=== PATIENT | male | born 1965 | race Caucasian/White ===

== ENCOUNTER 2021-02-20 02:40 | Day surgery (SDC) | payer BC, SELFPAY ==
[2021-02-03 10:08] VITALS: BMI 27.4
--- NOTE | 2021-02-17 16:29 | PM.HPGS ---
History of Present Illness History of Present Illness Consent: Risks, benefits, and alternatives have been discussed and questions answered. Patient agrees to proceed with procedure. Chief complaint: neoplasm screening, fami hx colon CA Narrative: Real Gomez is a 55 year old male who is referred for colon cancer screening Review of Systems Review of Systems: All systems reviewed & are unremarkable except as noted in HPI and below PMFSH Past Medical History Medical History DM w/o complication type II Essential (primary) hypertension Hyperglycemia Orthostasis Osteoarthritis, hand Family History Family History Mother Carcinoma of colon Other Hypertension Social History Social History Smoking status: Never smoker Alcohol intake: current Drinks per week: 1 Substance use type: does not use Living arrangements: with family Spiritual care concerns: No Meds Home Medications and Allergies Home Medications Medication Instructions Recorded Confirmed Type lisinopril 10 1 tablet PO DAILY #90 tablet 10/25/20 02/20/21 Rx mg-hydrochlorothiazide 12.5 mg tablet metformin 500 mg tablet 500 mg PO DAILY #90 tablet 10/26/20 02/20/21 Rx naproxen 500 mg tablet 500 mg PO BID PRN 10/31/20 02/20/21 History Allergies Allergy/AdvReac Type Severity Reaction Status Date / Time No Known Allergies Allergy Verified 02/20/21 06:41 Exam Resp: Auscultation: clear to auscultation bilaterally Cardio: Rate: regular rate Rhythm: regular rhythm GI: GI Palp: Yes Soft to palpation and No Tenderness to palpation present (GI) Assessment and Plan Assessment and plan (1) Colon cancer screening: Code(s): Z12.11 - Encounter for screening for malignant neoplasm of colon Status: Acute Assessment and Plan: Colonoscopy with possible biopsy or polypectomy or cautery or injection of substances.
[2021-02-20 06:42] LABS: Glucose Point of Care 129 mg/dl (65-105)
[2021-02-20 06:43] VITALS: BP 135/89; PULSE 88; RESP 18; TEMP 36.7; O2SAT 99
[2021-02-20] MEDS: LACTATED RINGERS 1,000 ML 150 ML IV CONT (06:45)
--- NOTE | 2021-02-20 07:43 | WPDANESEPPF ---
Anes - Initial Pre Proc Eval Procedure: Operation Date: 02/20/21 08:00 Proposed Procedures p Screening Colonoscopy - Juancho Paniagua MD Date/Time: 02/20/21 07:43 Surgeon: Juancho Paniagua MD Pre Op Diagnosis: neoplasm screening, fami hx colon CA Patient Data Age: 55 Gender: M Height: 1.73 m Weight: 83.5 kg Last Vital Signs Temp 98.1 F 02/20/21 06:43 Pulse 88 02/20/21 06:43 Resp 18 02/20/21 06:43 BP 135/89 02/20/21 06:43 Pulse Ox 99 02/20/21 06:43 Allergies Allergy/AdvReac Type Severity Reaction Status Date / Time No Known Allergies Allergy Verified 02/20/21 06:41 Home Medications Medication Instructions Recorded Confirmed Type lisinopril 10 1 tablet PO DAILY #90 tablet 10/25/20 02/20/21 Rx mg-hydrochlorothiazide 12.5 mg tablet metformin 500 mg tablet 500 mg PO DAILY #90 tablet 10/26/20 02/20/21 Rx naproxen 500 mg tablet 500 mg PO BID PRN 10/31/20 02/20/21 History Laboratory Tests 02/20/21 06:38 POC Capillary Glucose 129 mg/dl H mg/dl (65-105) Patient hx anesthesia problems: none Family hx anesthesia problems: none Results Review: All pre-operative results and documents have been reviewed as part of the pre-operative evaluation. [facility] Past Medical History Medical History DM w/o complication type II Essential (primary) hypertension Hyperglycemia Orthostasis Osteoarthritis, hand Family History Family History Mother Carcinoma of colon Other Hypertension Social History Social History Smoking status: Never smoker Alcohol intake: current Drinks per week: 1 Substance use type: does not use Living arrangements: with family Spiritual care concerns: No Anes - Eval Final PreProcedure Day of Procedure 02/20/21 07:43 Patient weight: overweight Heart: regular rate and rhythm Lungs: clear to auscultation Airway: Mallampati scale class II Neurological: alert and oriented Last oral intake: >/= 8 hours ASA classification: III Emergent: no Anesthetic plan: proceed Anesthesia type and monitoring: general GIVS and standard monitoring Results Review: All pre-operative results and documents have been reviewed as part of the pre-operative evaluation. Informed Consent: The patient's anesthetic plan and its attendant risks and benefits were discussed with the patient/family/POA. Questions were solicited and answers provided to the satisfaction of the patient/family/POA.
[2021-02-20 08:08] VITALS: BP 109/71; PULSE 91; RESP 18; O2SAT 94
[2021-02-20 08:18] VITALS: BP 119/82; PULSE 81; RESP 16; O2SAT 94
[2021-02-20 08:28] VITALS: BP 138/98; PULSE 83; RESP 20; O2SAT 97
== END 2021-02-20 08:49 | disposition home or self-care (01) ==
PROVIDERS: PCP Internal Medicine; Visit Provider Internal Medicine Gastroenterology
PROC: 0DJD8ZZ Inspection of Lower Intestinal Tract, Via Natural or Artificial Opening Endoscopic (ICD-10-PCS; CPT 45378; principal; 2021-02-20 08:00)
DX: Z12.11 Encounter for screening for malignant neoplasm of colon (principal); K57.30 Diverticulosis of large intestine without perforation or abscess without bleeding; D12.5 Benign neoplasm of sigmoid colon; Z80.0 Family history of malignant neoplasm of digestive organs; E11.9 Type 2 diabetes mellitus without complications; I10 Essential (primary) hypertension; Z79.84 Long term (current) use of oral hypoglycemic drugs
CPT/HCPCS: 45385; 82948; 88305; J2704; J7120

== ENCOUNTER 2022-12-12 13:15 | Outpatient (RCR) | payer BC, SELFPAY ==
--- NOTE | 2022-11-13 08:59 | OTOPEVAL1 ---
Assessment and note entered by Bennie Juan, JO/Aliza, CHT Evaluation Information Assessment Status Evaluation Diagnosis Bilat hand OA, right RF trigger finger Subjective Information Patient reporting pain in the right hand, 3/10 at rest and with light ROM. With heavier use the pain can get higher, but he reports he has tried to cut back on over doing it. 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 He was having difficulties with making a fist and tying his shoes, but he did receive a cortisone injection earlier this month and since then he has been able to make a fist and tie shoes. Overall he is feeling like his hands are very tight and sore with a composite fist. Reported Pain Level Pain Score 3,1: Self Report Assessment OT Clinical Summary Patient referred to outpatient OT with bilateral hand pain and stiffness, which has been restricting his ability to complete ADL tasks. Skilled OT indicated to maximize functional flexibility and reduce pain to facilitate optimal functional hand use for ADLs. Plan of Care Interventions Therapeutic Exercise,Manual Therapy,Therapeutic Activities,Hot Pack/Cold Pack,Paraffin OT Services Indicated Yes Treatment Frequency and 1x/week for 4 weeks Duration These treatments will address the objective and functional deficits as defined above. The patient will be advanced safely and appropriately in order for the patient to progress towards his/her prior level of function. Additional exercises will be introduced and as well as a comprehensive home exercise program upon discharge, if needed, ?to ensure carryover of functional gains achieved in the clinic. This treatment plan has been reviewed and agreement upon by the patient.
--- NOTE | 2022-11-13 08:59 | OPREHPOC ---
Outpatient Therapy Plan of Care This is a Multidisciplinary Plan of Care that may contain components documented by all disciplines (PT, OT, and ST.) OT Problem 1 OT Problem #1 Knowledge Deficit OT Goal 1 Goal 1. Patient to be independent with instructed materials. Target Visit 4 OT Problem 2 OT Problem #2 Impaired Flexibility OT Goal 1 Goal 1. Increase functional flexibility of the right hand as demonstrated by having less than 2 cm gap between the finger tips at the DPC when making a hook fist. OT Problem 3 OT Problem #3 Pain OT Goal 1 Goal 1. Patient to report reduced pain in bilateral hands, stating 0/10 with ROM and light ADLs. Target Visit 4
--- NOTE | 2022-12-12 14:06 | OTOPDC ---
Assessment and note entered by Bennie Juan, OTTrish/Aliza, CHT Discharge Summary 12/12/22 Assessment Status Discharge Diagnosis Bilat hand OA, right RF trigger finger Subjective Information Patient reports overall his hands are feeling better. Continues to have regular pain in the right hand, no longer reporting pain in the left hand. Overall he reports his hands are functional, reporting no limitations at this time. Active ROM of bilateral hands remained relatively unchanged since the start of care. (R) rag collector strength improved 12 lbs. (L) rag collector strength improved 20 lbs. Assessment OT Clinical Summary Patient referred to outpatient OT with bilateral hand pain and stiffness. OT focused on improved functional flexibility and strength of bilateral hands. ROM remained relatively unchanged since the start of care. He continues to have intrinsic tightness and stiff IP joints on the right hand. This appears to be due to degenerative changes at the joints as there is a hard end feel. At this time he is independent with ROM to maintain functional ROM and rag collector strengthening with theraputty. No further skilled OT indicated at this time. Plan of Care OT Services Indicated No
== END 2022-12-12 16:32 | disposition home or self-care (01) ==
LOC: ANHOT 13:15
PROVIDERS: PCP Internal Medicine
DX: M79.641 Pain in right hand (principal); M79.642 Pain in left hand
CPT/HCPCS: 97018; 97110; 97140; 97165

== ENCOUNTER 2023-08-05 06:02 | Emergency (ER) | payer BC, SELFPAY ==
--- NOTE | ~2023-08-05 | CT_ITS ---
EXAMINATION: CT soft tissue neck w con DATE: 08/05/2023 08:35 INDICATION: Throat pain and swelling. TECHNIQUE: Computed tomography (CT) of the neck was performed with 75 mL Omnipaque-350 intravenous co ntrast. Automated exposure control and iterative reconstruction technique were employed. The dose-mirta gth product was 596.98 mGy-cm. COMPARISON: None FINDINGS: There is mucosal thickening and asymmetry involving the larynx. There are no pathologically enlarged lymph nodes. There is mucosal thickening in the paranasal sinuses. The mastoid air cells ar e normal. The orbits are normal. There is severe cervical spondylosis. IMPRESSION: 1. Mucosal thickening and asymmetry involving the larynx, most likely inflammation given the symptoms . Squamosal cell carcinoma may have the same appearance. Reviewed, dictated and finalized at location A. IMPRESSION: 1. Mucosal thickening and asymmetry involving the larynx, most likely inflammat ion given the symptoms. Squamosal cell carcinoma may have the same appearance.
[2023-08-05 06:08] VITALS: BP 148/96; PULSE 92; RESP 20; TEMP 37.1; O2SAT 95
[2023-08-05 06:26] LABS: Basophils Absolute Auto 0.1 K/mm3 (0.0-0.1); Basophils Percent Auto 0.5 % (0.2-1.2); Eosinophils Absolute Auto 0.1 K/mm3 (0-0.3); Eosinophils Percent Auto 0.9 % (0-4.4); Hematocrit 41.1 % (42.0-52.0); Hemoglobin 14.5 g/dL (14.0-18.0); Immature Granulocyte Absolute 0.07 K/mm3 (0.00-0.031); Immature Granulocyte Percent A 0.5 % (0-0.5); Lymphocytes Absolute Auto 1.69 K/mm3 (0.9-3.2); Lymphocytes Percent Auto 12.1 % (18.3-44.2); Mean Corpuscular HGB Conc 35.3 g/dl (32-36); Mean Corpuscular Hemoglobin 28.3 pg (26-34); Mean Corpuscular Volume 80.1 fl (80-100); Mean Platelet Volume 8.6 fl (7.4-10.4); Monocytes Absolute Auto 1.7 K/mm3 (0.1-0.6); Monocytes Percent Auto 12.3 % (2.6-8.5); Neutrophils Absolute Auto 10.3 K/mm3 (1.3-6.7); Neutrophils Percent Auto 73.7 % (45.5-73.1); Platelet Count Result 180 k/mm3 (150-375); Red Blood Count 5.13 M/mm3 (4.6-6.20); Red Cell Distribution Width 11.7 % (11.5-14.5); White Blood Count 13.9 K/mm3 (4.5-10.0)
[2023-08-05] MEDS: diphenhydrAMINE HCl INJ 50 MG/ML VIAL 25 MG IV PUSH (06:35)
[2023-08-05] MEDS: methylPREDNISolone SOD SUCC 125 MG VIAL IV PUSH (06:35)
[2023-08-05] MEDS: FAMOTIDINE 20 MG/2 ML VIAL IV PUSH (06:35)
[2023-08-05 06:40] LABS: Alanine Aminotransferase 23 U/L (6-50); Albumin Level 4.3 g/dL (3.5-5.1); Alkaline Phosphatase 128 U/L (38-126); Anion Gap 5 mmol/L (4-12); Aspartate Amino Transferase 28 U/L (17-59); Bilirubin,Total 1.2 mg/dL (0.2-1.3); Blood Urea Nitrogen 13 mg/dL (9-20); Calcium 9.1 mg/dL (8.4-10.2); Carbon Dioxide 27 mmol/L (22-30); Chloride 103 mmol/L (98-107); Estimated CRCL calculation 79 ml/min; Estimated Glomerular Filt Rate > 60; Glucose 181 mg/dL (65-110); Potassium 3.9 mmol/L (3.4-5.0); Sodium 135 mmol/L (137-145)
[2023-08-05 06:41] VITALS: RESP 20; O2SAT 98
[2023-08-05 06:43] VITALS: BP 142/92; PULSE 89; RESP 15; O2SAT 96
[2023-08-05 06:49] LABS: Strep Group A RT-PCR NOT DETECTED (Negative)
[2023-08-05 09:09] VITALS: BP 148/88; PULSE 93; RESP 16; O2SAT 94
--- NOTE | 2023-08-05 10:41 | ED.GENADULT ---
HPI - General Adult General Chief complaint: Unspecified Stated complaint: throat Time Seen by Provider: 08/05/23 06:58 History of Present Illness HPI narrative: Patient presents here with a sore throat since last night, he feels like there is a lump in and that hurts to swallow, he was worried he was having trouble breathing and so came in here. He is on lisinopril, he did eat at a new restaurant but does not think he is allergic to anything. There is a sick contact with metapneumovirus Related Data Allergies Allergy/AdvReac Type Severity Reaction Status Date / Time No Known Allergies Allergy Verified 05/27/23 07:44 Review of Systems Review of Systems: All systems reviewed & are unremarkable except as noted in HPI and below PMFSH Past Medical History Medical History COVID-19 DM w/o complication type II Essential (primary) hypertension Hyperglycemia Hyperlipidemia Orthostasis Osteoarthritis, hand Family History Family History Mother Carcinoma of colon Other Hypertension Social History Social History Smoking status: Never smoker Alcohol intake: current Drinks per week: 1 Substance use type: does not use Lack of Transportation: No Lack of Food: Never True Current Housing: Decline to Answer Concerned About Future Housing: Decline to Answer Difficulty Paying Gas/Electric Bills: Decline to Answer Difficulty Paying for Meds: Decline to Answer Currently Unemployed: Decline to Answer Education: Decline to Answer Difficulty w/ Childcare or Family Care: Decline to Answer Living arrangements: with family Spiritual care concerns: No Exam Narrative: EXAMINATION OF ORGAN SYSTEMS/BODY AREAS: Constitutional: Vital signs per nursing GENERAL:[No acute distress, non-toxic appearing.] HEAD: Normal with no signs of head trauma. EYES: EOMI, conjunctiva normal ENT: Slightly hoarse voice, no trismus LUNGS: Nonlabored breathing. HEART: [Regular rate and rhythm] ABD: [Soft], [nontender to palpation] EXT: Normal range of motion SKIN: [No rashes or lesions.] NEURO: [Alert and oriented x 3. No gross focal sensory or strength deficits.] PSYCH: Normal affect Course Vital Signs Vital signs: Vital Signs Temperature 98.8 F 08/05/23 06:08 Pulse Rate 92 08/05/23 06:08 Respiratory Rate 20 08/05/23 06:08 Blood Pressure 148/96 H 08/05/23 06:08 Pulse Oximetry 95 08/05/23 06:08 Oxygen Delivery Room Air 08/05/23 06:08 Temperature 98.8 F 08/05/23 06:08 Pulse Rate 93 08/05/23 09:09 Respiratory Rate 16 08/05/23 09:09 Blood Pressure 148/88 H 08/05/23 09:09 Pulse Oximetry 94 08/05/23 09:09 Oxygen Delivery Room Air 08/05/23 06:08 Medical Decision Making MDM Narrative Medical decision making narrative: MEDICAL DECISION MAKING AND COURSE IN THE ED WITH INTERPRETATION/REVIEW OF DIAGNOSTIC STUDIES: Electronic medical record was reviewed. Patient presented to the ED with a complaint of sore throat. Vitals [were within acceptable limits]. Physical exam revealed slightly erythematous tonsils, slightly hoarse voice, overall well-appearing patient. Differential includes allergic reaction, Kranthi inhibitor induced angioedema, viral infection. [Patient was given benadryl, famotidine, steroids]. On re-evaluation, the patient was feeling improved. Given concern for airway and his feeling like his throat was closed up, I did obtain a CT neck which thankfully just shows likely infectious etiology, I did check on him again he states that he is actually feeling much better now, he has not had worsening of symptoms here and is stable for discharge and will go home with prednisone and followup with ENT, I did let him know that the other differential on the radiologist read was possible malignancy so I have
== END 2023-08-05 10:00 | disposition home or self-care (01) ==
PROVIDERS: Emergency Medicine; Emergency Provider Emergency Medicine; PCP Internal Medicine
DX: J02.9 Acute pharyngitis, unspecified (principal); I10 Essential (primary) hypertension; E11.9 Type 2 diabetes mellitus without complications; E78.5 Hyperlipidemia, unspecified; M19.049 Primary osteoarthritis, unspecified hand; Z86.16 Personal history of COVID-19; Z79.84 Long term (current) use of oral hypoglycemic drugs; R93.89 Abnormal findings on diagnostic imaging of other specified body structures
CPT/HCPCS: 36415; 70491; 80053; 85025; 87651; 96374; 96375; 99284; J1200; J2919; Q9967

== ENCOUNTER 2024-04-29 08:15 | Outpatient (RCR) | payer BC, SELFPAY ==
[2024-03-25 09:29] VITALS: BMI 30.2
[2024-03-25 09:30] VITALS: BMI 30.2
[2024-04-29 08:19] VITALS: BMI 26.6
[2024-04-29 08:21] VITALS: BMI 26.6
== END 2024-05-25 09:18 | disposition home or self-care (01) ==
LOC: ANHDMC 08:15
PROVIDERS: PCP Internal Medicine; Visit Provider Internal Medicine
DX: E11.65 Type 2 diabetes mellitus with hyperglycemia (principal); Z71.89 Other specified counseling; Z71.3 Dietary counseling and surveillance
CPT/HCPCS: 97802; 97803; G0108